=== PATIENT | male | born 1975 | race Caucasian/White ===

== ENCOUNTER 2022-07-13 18:01 | Emergency (ER) | payer BC ==
[2022-07-13 18:08] VITALS: BP 161/101; PULSE 83; RESP 18; TEMP 98.1
[2022-07-13] MEDS ORDERED: DIPH,PERTUS(ACELL)TETVAC-LF 0.5 ML VIAL IM ONE (18:20)
--- NOTE | 2022-07-13 18:26 | ED ---
General Adult HPI - General Chief complaint: Extremity Injury, Lower Stated complaint: Right lower extremity pain Time Seen by Provider: 07/13/22 18:09 Source: patient Mode of arrival: ambulatory Limitations: no limitations - History of Present Illness Initial comments: Dictation was produced using [employer] dictation software. please excuse any gramm atical, word or spelling errors. Chief Complaint: 46-year-old male presents emergency department for right ankle injury History of Present Illness: Patient is a 46-year-old male presents emergency department for right ankle injury. Patient states that he was moving some scaffolding when he lost his footing. He sprained his ankle and scaffolding crushed his leg. Injury occurred approximately 1 hour prior to arrival. Patient's tetanus is not up-to-date. There was some bleeding noted to his anterior right ankle. Denies any numbness tingling to the foot. Denies any midfoot pain or proximal fifth metatarsal pain. The ROS documented in this emergency department record has been reviewed and confirmed by me. Those systems with pertinent positive or negative responses have been documented in the HPI. All other systems are other negative and/or noncontributory. PHYSICAL EXAM: General Impression: Alert and oriented x3, not in acute distress HEENT: Normocephalic atraumatic, extra-ocular movements intact, pupils equal and reactive to light bilaterally, mucous membranes moist. Cardiovascular: Heart regular rate and rhythm Chest: Able to complete full sentences, no retractions, no tachypnea Musculoskeletal: Pulses present and equal in all extremities, no peripheral edema Motor: no focal deficits noted Neurological: CN II-XII grossly intact, no focal motor or sensory deficits noted Skin: Intact with no visualized rashes Psych: Normal affect and mood Right ankle: Avulsion laceration measuring a total of 2 cm to the anterior right ankle. No palpatory tenderness to the right foot. No fifth metatarsal pain, edema and swelling to the right lateral malleolus ED course: 46-year-old male presents to the emergency Department with right ankle injury. vital signs upon arrival are within acceptable limits. Nursing notes and chart review was performed Ankle x-ray shows bimalleolar fracture. Patient placed in a right lower extremity ankle splint. Tetanus updated. Laceration repaired. See procedure note. Patient discharged with outpatient referral to foot and ankle specialist. Was pt. sent in by a medical professional or institution (Dr., PA, [employer], urgent care, hospital, or prison...) When possible be specific @ -No Did you speak to anyone other than the patient for history (EMS, parent, family, police, friend...)? What history was obtained from this source @ -Model And Pattern Supervisor at the bedside Did you review nursing and triage notes (agree or disagree)? Why? @ -I reviewed and agree with nursing and triage notes Were old charts reviewed (outside hosp., previous admission, EMS record, old EKG, old radiological studies, urgent care reports/EKG's, prison records)? Report findings @ -No old charts were reviewed Differential Diagnosis (chest pain, altered mental status, abdominal pain women, abdominal pain men, vaginal bleeding, weakness, fever, dyspnea, syncope, headache, dizziness, GI bleed, back pain, seizure, CVA, palpatations, mental health)? @ -Ankle sprain, ankle fracture, Brush fracture, Lisfranc fracture, foot sprain EKG interpreted by me (3pts min.). @ -None done X-rays interpreted by me (1pt min.). @ -see above CT interpreted by me (1pt min.). @ -None done U/S interpreted by me (1pt. min.). @ -None done What testing was considered but not performed or refused? (CT, X-rays, U/S, labs)? Why? @ -None What meds were considered but not given or refused? Why? @ -None Did you discuss the management of the patient with other professionals (professionals i.e. ELISABETH Garcia, [employer], lab, RT, psych nurse, social service agency director, decorating machine operator, teacher, sales promotion officer, field nurse case manager)? Give summary @ -No Was smoking cessation discussed for >3mins.? @ -No Was critical care preformed (if so, how long)? @ -No Were there social determinants of health that impacted care today? How? (Homelessness, low income, unemployed, alcoholism, drug addiction, transportation, low edu. Level, literacy, decrease access to med. care, senior care, rehab)? @ -No Was there de-escalation of care discussed even if they declined (Discuss DNR or withdrawal of care, Hospice)? DNR status @ -No What co-morbidities impacted this encounter? (DM, HTN, Smoking, COPD, CAD, Cancer, CVA, ARF, Chemo, Hep., AIDS, mental health diagnosis, sleep apnea, morbid obesity)? @ -None Was patient admitted / discharged? Hospital course, mention meds given and route, prescriptions, significant lab abnormalities, going to OR and other pertinent info. @ -See above Undiagnosed new problem with uncertain prognosis? @ -No Drug Therapy requiring intensive monitoring for toxicity (Heparin, Nitro, Insulin, Cardizem)? @ -No Were any procedures done? @ -Suture repair And splint placement Diagnosis/symptom? @ -Bilateral Malleolus ankle fracture, low extremity laceration Acute, or Chronic, or Acute on Chronic? @ -Acute Uncomplicated (without systemic symptoms) or Complicated (systemic symptoms)? @ -default Side effects of treatment? @ -No Exacerbation, Progression, or Severe Exacerbation? @ -No Poses a threat to life or bodily function? How? (Chest pain, [place], [place], pneumonia, PE, COPD, DKA, ARF, appy, cholecystitis, CVA, Diverticulitis, Homicidal, Suicidal, threat to staff... and all critical care pts) @ -No - Related Data Allergies Allergy/AdvReac Type Severity Reaction Status Date / Time No Known Allergies Allergy Verified 07/13/22 18:45 Review of Systems ROS Statement: Those systems with pertinent positive or pertinent negative responses have been documented in the HPI. ROS Other: All systems not noted in ROS Statement are negative. Past Medical History Past Medical History: No Reported History History of Any Multi-Drug Resistant Organisms: None Reported Past Surgical History: No Surgical Hx Reported Past Psychological History: No Psychological Hx Reported Smoking Status: Never smoker Past Alcohol Use History: Rare Past Drug Use History: None Reported General Exam Limitations: no limitations Course Vital Signs 07/13/22 18:05 Temperature 98.1 F Pulse Rate 83 Respiratory 18 Rate Blood Pressure 161/101 O2 Sat by Pulse 99 Oximetry Procedures - Laceration Laceration #1 Consent Obtained: verbal consent Indication: laceration Site: lower extremity Description: avulsion (2 cm) Depth: simple, single layer Anesthetic Used: lidocaine 1%, with epi Anesthesia Technique: local infiltration Type of Sutures: nylon Size of Sutures: 3-0 Number of Sutures: 4 Technique: simple, interrupted Patient Tolerated Procedure: well - Orthopedic Splinting/Casting Injury #1 Side: right Lower Extremity Injury Location: ankle Other Orthopedic Equipment: crutches Disposition Clinical Impression: Ankle fracture, Leg laceration Disposition: HOME SELF-CARE Condition: Fair Instructions (If sedation given, give patient instructions): Ankle Fracture ( ED) Additional Instructions: Suture removal in 10 days, no weight bearing to right lower extremity Is patient prescribed a controlled substance at d/c from ED?: No Referrals: John Gil MD [Medical Doctor] - 1-2 days Time of Disposition: 20:00
[2022-07-13] MEDS ORDERED: LIDOCAINE 1%-EPI 1:100,000 20 ML VIAL SQ STA (18:28)
--- NOTE | 2022-07-13 19:05 | XR ---
EXAMINATION TYPE: XR ankle complete RT DATE OF EXAM: 07/13/2022 COMPARISON: NONE HISTORY: Pain. Fall. TECHNIQUE: 3 views FINDINGS: There is vertical fracture through the medial malleolus without displacement. There is nond isplaced transverse fracture of the lateral malleolus. There is soft tissue swelling around the ankle . No dislocation. The talus is intact. IMPRESSION: Soft tissue swelling. Nondisplaced bimalleolar fracture of the ankle.
[2022-07-13] MEDS ORDERED: ACET/COD 300 MG/30 MG STARTER PACK 6 TAB BTL PO STA (19:58)
== END 2022-07-13 20:19 | disposition home or self-care (01) ==
LOC: EC 18:01
DX: S82.844A Nondisplaced bimalleolar fracture of right lower leg, initial encounter for closed fracture (principal); S91.011A Laceration without foreign body, right ankle, initial encounter; Z23 Encounter for immunization; W01.198A Fall on same level from slipping, tripping and stumbling with subsequent striking against other object, initial encounter; Y93.H3 Activity, building and construction; Y99.0 Civilian activity done for income or pay
CPT/HCPCS: 12001; 90471; 90715; 99283